=== PATIENT | female | born 1950 | race Caucasian/White ===

== ENCOUNTER 2021-05-23 09:55 | Outpatient (CLI) | payer BC | END 2021-05-23 09:56 | disposition home or self-care (01) | LOC: CSHMAMMO 09:55 | PROVIDERS: ATTEND Obstetrics & Gynecology | DX: Z12.31 Encounter for screening mammogram for malignant neoplasm of breast (principal); Z91.89 Other specified personal risk factors, not elsewhere classified; Z80.3 Family history of malignant neoplasm of breast; Z84.89 Family history of other specified conditions | CPT/HCPCS: 77063; 77067 ==

== ENCOUNTER 2022-05-11 09:22 | Outpatient (CLI) | payer BC ==
[2022-05-11] MEDS ORDERED: Iopamidol 300 61% 100 ML VIAL FS ONE (09:29)
== END 2022-05-11 09:23 | disposition home or self-care (01) ==
LOC: CSHCT 09:22
PROVIDERS: ATTEND Internal Medicine Gastroenterology
DX: R10.13 Epigastric pain (principal); R11.0 Nausea; R93.2 Abnormal findings on diagnostic imaging of liver and biliary tract; N28.1 Cyst of kidney, acquired; N83.8 Other noninflammatory disorders of ovary, fallopian tube and broad ligament
CPT/HCPCS: 74160; 82565; Q9967

== ENCOUNTER 2022-05-20 10:43 | Emergency (ER) | payer BC ==
[~2022-05-20 10:43] MED LIST: Iopamidol 370 76% 100 ML VIAL ONE
[2022-05-20 11:35] LABS: #Monocytes 0.4 10x3/uL (0.0-1.1); %Basophils 0.3 % (0.0-2.0); %Eosinophils 0.3 % (0.0-6.0); %Lymphocytes 30.3 % (18.0-47.0); %Monocytes 5.4 % (0.0-10.0); %Neutrophils 63.3 % (40.0-75.0); Hemoglobin 15.4 g/dL (12.0-15.5); Mean Corpuscular HGB CONC 34.8 g/dL (32.0-36.0); Mean Corpuscular Hemoglobin 29.8 pg (27.0-33.0); Mean Corpuscular Volume 85.7 fl (81.6-98.3); Mean Platelet Volume 9.1 fl (7.4-10.4); Platelet Count 352 10x3/uL (150-450); RBC Distribution Width 13.5 % (11.5-14.5); Red Blood Cell (RBC) Count 5.16 10x6/uL (3.90-5.03); White Blood Cell (WBC) Count 7.9 10x3/uL (3.5-10.5)
[2022-05-20 11:45] LABS: ALT (SGPT) 19 U/L (8-55); AST (SGOT) 22 U/L (5-34); Albumin 4.5 g/dL (3.4-4.8); Alkaline Phosphatase 66 U/L (40-110); Anion Gap 16 mmol/L (10-20); BUN (Urea Nitrogen) 17 mg/dL (9.8-20.1); Bilirubin, Total 0.7 mg/dL (0.2-1.2); Calc. Creatinine Clearance 0 mL/min (70-130); Calcium 10.2 mg/dL (7.8-10.44); Carbon Dioxide 22 mmol/L (23-31); Chloride 106 mmol/L (98-107); Estimated GFR 57; Glucose 134 mg/dL (83-110); Protein, Total 7.5 g/dL (5.8-8.1); Sodium 141 mmol/L (136-145)
[2022-05-20 11:49] LABS: Potassium 2.8 mmol/L (3.5-5.1)
[2022-05-20] MEDS ORDERED: Potassium Chloride 20 MEQ TAB ONE (12:14)
[2022-05-20] MEDS ORDERED: Magnesium 2 GM/50 ML BAG (IN WATER) ONE (12:14)
== END 2022-05-20 13:58 | disposition home or self-care (01) ==
LOC: CSHERS 10:43
DX: E87.6 Hypokalemia (principal); R00.2 Palpitations; R06.00 Dyspnea, unspecified; K21.9 Gastro-esophageal reflux disease without esophagitis; I10 Essential (primary) hypertension; Z79.899 Other long term (current) drug therapy
CPT/HCPCS: 71045; 71275; 80053; 84484; 85025; 85379; 93005; 96365; J3475; Q9967

== ENCOUNTER 2022-06-01 11:26 | Outpatient (CLI) | payer BC | END 2022-06-01 11:27 | disposition home or self-care (01) | LOC: CSHMAMMO 11:26 | PROVIDERS: ATTEND Obstetrics & Gynecology | DX: Z12.31 Encounter for screening mammogram for malignant neoplasm of breast (principal); Z91.89 Other specified personal risk factors, not elsewhere classified; Z80.3 Family history of malignant neoplasm of breast | CPT/HCPCS: 77063; 77067 ==

== ENCOUNTER 2023-06-02 11:22 | Outpatient (CLI) | payer BC | END 2023-06-02 11:23 | disposition home or self-care (01) | LOC: CSHMAMMO 11:22 | PROVIDERS: ATTEND Obstetrics & Gynecology | DX: Z12.31 Encounter for screening mammogram for malignant neoplasm of breast (principal); Z80.3 Family history of malignant neoplasm of breast; Z91.89 Other specified personal risk factors, not elsewhere classified | CPT/HCPCS: 77063; 77067 ==

== ENCOUNTER 2024-06-05 10:54 | Outpatient (CLI) | payer BC | END 2024-06-05 10:55 | disposition home or self-care (01) | LOC: CSHMAMMO 10:54 | PROVIDERS: ATTEND Obstetrics & Gynecology | DX: Z12.31 Encounter for screening mammogram for malignant neoplasm of breast (principal); Z80.3 Family history of malignant neoplasm of breast; Z91.89 Other specified personal risk factors, not elsewhere classified | CPT/HCPCS: 77063; 77067 ==

== ENCOUNTER 2025-06-06 09:26 | Outpatient (CLI) | payer BC | END 2025-06-06 09:27 | disposition home or self-care (01) | LOC: CSHMAMMO 09:26 | PROVIDERS: ATTEND Obstetrics & Gynecology | DX: Z12.31 Encounter for screening mammogram for malignant neoplasm of breast (principal); M85.80 Other specified disorders of bone density and structure, unspecified site; M81.0 Age-related osteoporosis without current pathological fracture; Z80.3 Family history of malignant neoplasm of breast; Z91.89 Other specified personal risk factors, not elsewhere classified | CPT/HCPCS: 77063; 77067; 77080 ==